=== PATIENT | female | born 1995 | race Caucasian/White ===

== ENCOUNTER → 2018-12-16 | Outpatient (REF) | payer OTHER | LOC: M SFHCLERA 17:08 | PROVIDERS: ATTEND Physician Assistant | DX: J02.9 Acute pharyngitis, unspecified (principal) ==

== ENCOUNTER 2019-02-14 17:09 | Emergency (ER) | payer OTHER ==
[~2019-02-14] VITALS: Ht 160 cm; Wt 63.6 kg
[2019-02-14] MEDS ORDERED: PRENTAB45 PO (17:20)
[2019-02-14] MEDS ORDERED: FAMOTIDINE INJ 20MG/2ML VIAL (S0028) IV ONE (17:45)
[2019-02-14] MEDS ORDERED: NS 1,000 ML IV ONE (17:45)
[2019-02-14] MEDS ORDERED: FAMO1TAB11 PO (17:57)
[2019-02-14] MEDS ORDERED: PRED50TA PO (17:57)
[2019-02-14] MEDS ORDERED: BENA25CA4 PO (17:57)
== END 2019-02-14 19:11 | disposition home or self-care (01) ==
LOC: EDBD 17:09 → M ED 17:09
DX: O99.89 Other specified diseases and conditions complicating pregnancy, childbirth and the puerperium (principal); T78.40XA Allergy, unspecified, initial encounter; Y92.9 Unspecified place or not applicable; Y93.9 Activity, unspecified; Z79.899 Other long term (current) drug therapy; Z91.018 Allergy to other foods

== ENCOUNTER 2019-04-23 21:21 | Outpatient (CLI) | payer OTHER ==
[~2019-04-23] VITALS: Ht 160 cm; Wt 72.2 kg
[~2019-04-23 21:21] MED LIST: BENA25CA4 PO; FAMO1TAB11 PO; PRED50TA PO; PRENTAB45 PO
[2019-04-23 21:46] VITALS: BP 132/86
--- NOTE | 2019-04-24 00:18 | HPE ---
DATE OF ADMISSION: 04/23/2019 A 24-year-old 1, para 0, last menstrual period (LMP) 07/27/2018, estimated date of confinement (EDC) 05/03/2019 at 38 and 5 with a history of 24 hours of no movement. Risk factors is she has syncopal episodes for which she is seeing a radiology receptionist on Monday, and she had growth hormone deficiency which was resolved. Her labs are B+, HIV negative. Hepatitis is unknown. RPR is negative. Rubella immune. Pap shows LGSIL. Urine negative. Gonorrhea and chlamydia are negative. 1-hour glucose was 103 and GBS is negative. On examination, no acute distress. Symphysis fundus height is appropriate. Four quadrant bowel sounds are noted. Category one strip. She initially came in with a category II but eventually ended up with a category one strip with good accelerations, baseline was normal and moderate variability. She denied any loss of fluid or vaginal bleeding. Pulse is 101, respirations are 18: Temperature is 99.4. Blood pressure 132/86. Urine is 1.005. pH 7 and 1+ leukocytes. Our plan was to do a nonstress test (NST) when reactive, give her precautions. She has an appointment with cardiology and an appointment with [facility]. She was discharged undelivered.
[2019-05-04] MEDS ORDERED: IBUP80TA PO (08:16)
[2019-05-04] MEDS ORDERED: PERCOCET PO (08:16)
== END 2019-04-23 22:46 | disposition home or self-care (01) ==
LOC: M LDO 21:21
PROVIDERS: ATTEND Obstetrics & Gynecology
DX: O36.8130 Decreased fetal movements, third trimester, not applicable or unspecified (principal); O99.89 Other specified diseases and conditions complicating pregnancy, childbirth and the puerperium; R87.612 Low grade squamous intraepithelial lesion on cytologic smear of cervix (LGSIL); Z3A.38 38 weeks gestation of pregnancy
CPT/HCPCS: 59025; G0378; G0463

== ENCOUNTER 2019-04-30 03:19 | Outpatient (CLI) | payer OTHER ==
[~2019-04-30] VITALS: Ht 160 cm; Wt 71.9 kg
[2019-04-30 03:32] VITALS: BP 134/93
[2019-04-30 04:09] VITALS: BP 133/88
--- NOTE | 2019-04-30 04:21 | IPNPDOC ---
Text Note Date of Service The patient was seen on 04/30/19. NOTE 24 yo at 39+4 weeks gestation presented to L&D with contractions. She denies any vaginal bleeding or leakage of fluid. She endorses excellent movement. Chaperoned by L&D RN Vitals - VSS, afebrile, normotensive, non tachycardic General - AAOX3, sitting up in bed, NAD Abdomen - Gravid uterus, no fundal tenderness Cervix - 2/75/-3, posterior Extremities - No edema FHR: Reactive NST with moderate variability, +accels, no decels Patient not in active labor. status reassuring. Discharged home with return precautions. All patient questions answered. DO ZIA Bro CHRISTOPHER J. DO Apr 30, 2019 04:21
[2019-04-30] MEDS ORDERED: BENA25CA4 PO (18:55)
[2019-04-30] MEDS ORDERED: MAPA500T2 PO (18:55)
--- NOTE | 2019-05-01 13:08 | RO ---
DATE OF PROCEDURE: 05/01/2019 PROCEDURE: Primary low transverse section. PREOPERATIVE DIAGNOSIS: Arrest of descent. POSTOPERATIVE DIAGNOSES: Arrest of descent, fetus in direct occipitoposterior (OP) presentation. SURGEON: Romeo Mckay DO BLOOD BANK SUPERVISOR: Mirian Larsen CNM, who assistance with exposure, retraction, and delivery was essential ANESTHESIA: Initial attempted epidural but then conversion to general anesthesia. INTRAVENOUS (IV) FLUIDS: 1000 mL lactated Ringer (LR). URINE OUTPUT: 100 mL via Samuels catheter. ESTIMATED BLOOD LOSS (EBL): 700 mL. ANTIBIOTICS: 2 grams Ancef, 500 mg azithromycin. COMPLICATIONS: None. OPERATIVE FINDINGS: Viable male infant found and delivered in the direct OP presentation. Normal uterus, normal ovaries, and fallopian tubes bilaterally. Apgars 4/9. Weight 3520 grams or 7lbs 12oz. DETAILED PROCEDURE DESCRIPTION: The risks, benefits, indications, and alternatives of the procedure were reviewed with the patient, and informed consent was obtained. The patient was taken to the operating room, where epidural anesthesia was initially found to be adequate, but conversion to general anesthesia was ultimately done just before the hysterotomy was made secondary to the inability to get the patient comfortable. The patient was prepped and draped in the usual sterile fashion in the dorsal supine position. A surgical time-out was then performed and the patient's identity and the planned procedure were verified with the operative team. A Samuels catheter had been placed previously. A Pfannenstiel skin incision was then made and carried down through the underlying layer of fascia. The fascia was incised in the midline, and the incision was extended laterally, superiorly, and inferiorly via blunt dissection. At this point, secondary to poor pain control, the decision was made to convert to general anesthesia. The rectus muscles were then at the midline. The peritoneum was then entered digitally and was stretched with good visualization of the bladder upon entry into the abdominal cavity. The bladder blade was then inserted into the abdomen. A bladder flap was then created with a scalpel. The bladder blade was replaced. The uterus was then incised in a transverse fashion with the scalpel. Meconium-stained fluid was noted upon entry into the uterus. The was found in direct OP presentation. The was then delivered atraumatically though the hysterotomy site without difficulty. Cord gases were then obtained. The was then handed off to the awaiting pediatricians. The placenta was then removed manually, and the uterus was exteriorized and cleared of all clots and debris. The hysterotomy incision was then repaired with 0 Monocryl suture in a running locked fashion. A second layer of 0 Monocryl suture was then used to imbricate the hysterotomy in a vertical fashion. There was a small extension of the hysterotomy on the right side, which was made hemostatic and closed with 0 Vicryl suture. Inspection of the hysterotomy revealed excellent hemostasis. Irrigation was then performed, and the uterus was then returned to the abdomen. The pericolic gutters were inspected and cleared of all clots and debris. Inspection of the hysterotomy again revealed small oozing bleeding noted at the left lateral hysterotomy edge, which was made hemostatic with a 3-0 Vicryl suture in a figure-of-8 fashion. Then, inspection of the entire hysterotomy across everywhere revealed excellent hemostasis. The peritoneum was then closed with 3-0 Vicryl suture in a running fashion. The fascia was then closed with 0 Vicryl suture in a running fashion. The subcutaneous fat was closed with 3-0 Vicryl suture in a running fashion. The skin was then closed with 4-0 Vicryl suture and covered with Steri-Strips. At the conclusion of the case, a bimanual examination was performed, which confirmed good uterine tone, minimal vaginal bleeding, and confirmed patent cervix. The patient tolerated the procedure well and was taken to the recovery room in stable condition. LORRAINE
[2019-05-04] MEDS ORDERED: PERCOCET PO (08:16)
[2019-05-04] MEDS ORDERED: IBUP80TA PO (08:16)
== END 2019-04-30 04:20 | disposition home or self-care (01) ==
LOC: M LDO 03:19
PROVIDERS: ATTEND Obstetrics & Gynecology
DX: O26.893 Other specified pregnancy related conditions, third trimester (principal); O47.1 False labor at or after 37 completed weeks of gestation; Z3A.39 39 weeks gestation of pregnancy

== ENCOUNTER 2019-12-25 22:14 | Inpatient (IN) | payer OTHER ==
[~2019-12-25] VITALS: Ht 154.9 cm; Wt 58.5 kg
[~2019-12-25 22:14] MED LIST changes: +IBUP80TA PO; +MAPA500T2 PO; +PERCOCET PO
[2019-12-26] MEDS ORDERED: MAALOX 30 ML SUSP *UDC PO PRN (01:45)
[2019-12-26] MEDS ORDERED: ACETAMINOPHEN TAB 650MG DOSE (2X325MG) PO PRN (01:45)
[2019-12-26] MEDS ORDERED: MOM 30ML SUSPENSION UDC PO PRN (01:45)
--- NOTE | 2019-12-26 01:46 | HPEPDOC ---
[facility] Medical History & Physical Date of Admission Dec 26, 2019 Date of Service: Dec 26, 2019 Other Provider Isabel Attending Physician: TIFFANIE ASENCIO MD History and Physical TIME OF SERVIE 145AM CC: Dizziness HPI: This is a 24 yr old F who presents w c/o of episodes of dizziness followed by intermittent left upper and lower sided weakness for several months. Her PCP who has referred her to a Neurologist but the appointment date is pending. Today she came to the ER because she developed transient vision loss which she found alarming and has been having headaches. She denies having fevers or chills and is currently c/o of feeling very hot which is atypical. Per discussion with the ER provider the patient recently had a CT scan of the head that was unremarkable. ROS: 12 point ROS negative except as listed in HPI PMH/PSH "growth hormone issue " she stopped taking her medications in high school because of financial issues IDN s/p 1 SH -tobacco + , is in the [facility] unknown bc she is adopted MEDS: see below ALLERGIES: see below PHYSICAL EXAM VITALS: see below GEN: well-nourished / well developed/ probable bodies intermittently shaking during parts of the history INTEGUMENT: not flushed/ not jaundice HEENT: NCAT / lips acyanotic /mucus membranes moist and pink CVS: RRR/NMRG/no lower extremity edema LUNGS: able to speak full sentences without stopping to take a breath / no coughing / lungs are clear to auscultation bilaterally on room air ABDOMEN: Contour (flat,) / soft & not tender with palpation MSK/EXTREMITIES: range of motion intact in all 4 extremities NEURO: She has episodes of fluttering with her eyes rolling to the back of her head and her body shaking when a light is shone into her eyes, or when I attempt to assess her extraocular movements / speech is not dysarthric / strength is 5/5 at right and left upper extremity and -5/5 at left and right upper extremity PSYCH: alert and oriented to person place and time/ able to understand and follow all commands LABS:see below ASSESSMENT is a 24 yr old F w a 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 PLAN: 1.Dizziness, weakness, transient vision loss and headaches of unclear cause Differential includes SHERRY in MS vs brain stem lesion vs seizure vs other cause TBD Plan: admit to medical floor, per d/w (Neuro) will order MRI of the brain w contrast, tomopax 25mg PO BID for the dizziness and EEG to r/o seizure / acetaminophen PRN for the THAO 2.ESVIN - Plan: c/w Iron DVT Px w SCDs DISPO: home after less than 2 midnight's stay Vital Signs Vital Signs Date Time Temp Pulse Resp B/P (MAP) Pulse Ox O2 Delivery O2 Flow Rate FiO2 12/25/19 23:59 12/25/19 22:14 98.9 42 18 99 Room Air Laboratory Data Labs 24H Laboratory Tests 12/26/19 01:48 Home Medications Scheduled Ferrous Sulfate (Ferrous Sulfate) 325 Mg Tablet., 325 MG PO DAILY Allergies Coded Allergies: citric acid (Verified Allergy, Unknown, 02/14/19) A-FIB/CHADSVASC A-FIB History Current/History of A-Fib/PAF?: No Current PO Anticoag Therapy: No TIFFANIE AESNCIO MD Dec 26, 2019 01:46
[2019-12-26 01:58] LABS: BASO # 0.1 10^3/uL (0.0-0.2); BASO % 0.8 % (0.0-1.0); EOS # 0.4 10^3/uL (0.0-0.5); EOS % 5.2 % (0.0-3.0); HEMATOCRIT 38.6 % (36.0-47.0); HEMOGLOBIN 11.9 g/dl (12.0-15.5); LYMPH # 3.4 10^3/uL (1.5-5.0); LYMPH % 41.7 % (24.0-44.0); MEAN CORPUSCULAR HEMOGLOBIN 25.8 pg (27.0-33.0); MEAN CORPUSCULAR HGB CONC 30.8 g/dl (32.0-36.5); MEAN CORPUSCULAR VOLUME 83.7 fl (80.0-96.0); MONO # 0.6 10^3/uL (0.0-0.8); MONO % 7.8 % (0.0-5.0); NEUTROPHILS # 3.7 10^3/uL (1.5-8.5); NEUTROPHILS % 44.4 % (36.0-66.0); PLATELET COUNT, AUTOMATED 308 10^3/uL (150-450); RED BLOOD COUNT 4.61 10^6/uL (4.00-5.40); WHITE BLOOD COUNT 8.3 10^3/uL (4.0-10.0)
[2019-12-26] MEDS ORDERED: FERR325T3 PO (02:16)
[2019-12-26] MEDS ORDERED: TOPIRAMATE (TopAMAX) 25 MG TAB PO ONE (02:30)
[2019-12-26 02:58] LABS: BLOOD UREA NITROGEN 12 MG/DL (7-18); CALCIUM LEVEL 8.6 MG/DL (8.5-10.1); CARBON DIOXIDE LEVEL 26 MEQ/L (21-32); CHLORIDE LEVEL 111 MEQ/L (98-107); CREATININE FOR GFR 0.76 MG/DL (0.55-1.30); FREE T4 1.14 NG/DL (0.76-1.46); GLOMERULAR FILTRATION RATE > 60.0 (>60); GLUCOSE, FASTING 84 MG/DL (70-100); MAGNESIUM LEVEL 2.2 MG/DL (1.8-2.4); POTASSIUM SERUM 4.2 MEQ/L (3.5-5.1); SODIUM LEVEL 144 MEQ/L (136-145)
[2019-12-26 03:17] VITALS: BP 105/70
[2019-12-26 06:00] VITALS: BP 108/62
[2019-12-26] MEDS: DOCUSATE SODIUM 100 MG CAP PO SCH ×3 (09:00→21:00)
[2019-12-26] MEDS: FERROUS SULFATE 325MG TAB PO SCH (09:40)
[2019-12-26] MEDS: TOPIRAMATE (TopAMAX) 25 MG TAB PO SCH ×2 (09:41→21:49)
[2019-12-26] MEDS ORDERED: PROHANCE 279.3MG/ML 15ML VIAL (A9576) As Ordered ONE (12:10)
--- NOTE | 2019-12-26 13:21 | IPNPDOC ---
Text Note Date of Service The patient was seen on 12/26/19. NOTE SUBJECTIVE: Patient was admitted overnight for dizziness, headache and transient visual loss. This morning on examination, patient stated that she did not have vision loss, simply had uncontrolled blinking, preventing her from seening accurately. She denies any recent illness. No change in diet, no changes in control. She is using a copper IUD. Patient is adopted and has no family history to report. She denies headache this morning. Of note patient does have a remote history of BPPV, was undergoing vestibular rehabilitation with producible symptoms of dizziness. She states that this episode of dizziness and poor vision does not feel like a BPPV-like symptoms. , Denies alcohol. Denies cigarette usage. She admits to ongoing symptoms with transition from laying down to sitting. Orthostatics have been negative so far. During hospital stay.Denies chest pain, denies nausea, denied vomiting, denies changes in vision. Denies any recent illness. Denies shortness of breath, or difficulty breathing.. He had no other overnight activities. OBJECTIVE: PHYSICAL EXAMINATION: GENERAL APPEARANCE: Alert no acute distress. Young female, no apparent distress SKIN: Warm, well perfused. LUNGS: Clear to auscultation bilaterally. HEART: Normal S1, S2. No murmurs, no rubs, no gallops ABDOMEN: Soft. No masses. Bowel sounds are present. TRUNK/SPINE:Straight. EXTREMITIES: Moves all extremities equally. No gross deformities. PULSES: 2+ upper and lower extremity . NUERO; normal [id number], unable to form. Cranial nerves II through exam unable to perform due to rapid blinking, blinking also occurs when patient transitions from laying down to sitting. She has an episode of rapid blinking that prevents her from seeing clearly,. Muscle strength 5 out of 5 in bilateral upper and lower extremity, reflexes intact. When patient is asked to extend her left leg. She also has reproducible symptoms of rapid blinking LABORATORY DATA: Please see below. ASSEMENT A 24-year-old female admitted for headaches, and transient vision loss. She will be followed by neurologist. MRI and EEG pending. PLAN 1.Dizziness, weakness, transient vision loss and headaches of unclear cause. Unknown etiology, differential diagnosis includes amaurosis fugax, pseudotumor cerebri, multiple sclerosis, secondary gains, malingering symptoms. Seizures, BPPV -Neurology on board -MRI and EEG pending -PT evaluate for BPPV DVT Px w SCDs VS,Fishbone, I+O VS, Fishbone, I+O Laboratory Tests 12/26/19 01:48 Vital Signs Date Time Temp Pulse Resp B/P (MAP) Pulse Ox O2 Delivery O2 Flow Rate FiO2 12/26/19 06:00 97.8 66 18 108/62 (77) 99 Room Air I&O- Last 24 Hours up to 6 AM 12/26/19 06:00 Intake Total 150 ml Output Total 0 ml Balance 150 ml GME ATTESTATION GME ATTESTATION My faculty preceptor for this patient encounter was physically present during the encounter and was fully available. All aspects of the patient interview, examination, medical decision making process, and medical care plan development were reviewed and approved by the faculty preceptor. The faculty preceptor is aware and concurs with the plan as stated in the body of this note and will attest to such by his/her cosignature. ATTENDING NOTE 24-year-old woman with a long standing history of vestibular challenges with frequent orthostatic syncopal episodes and "uncontrollable eye flipping" who had ongoing outpatient workup pending a brain MRI but developed persistent "eye flipping" at home such that her brought her in and on ED consultation with neurology was admitted for MRI and EEG which are pending at this time, as well as PT evaluation for BPPV. She is otherwise doing well when she does not have sudden position changes. Of note, she was not orthostatic on evaluation. OLLIE SRIVASTAVA DO Dec 26, 2019 13:21 TIGRE CASTELLANO MD Dec 27, 2019 08:16
--- NOTE | 2019-12-26 13:24 | REPVR ---
PROCEDURE INFORMATION: Exam: MR Head Without Contrast Exam date and time: 12/26/2019 1:06 PM Age: 24 years old Clinical indication: Patient HX: Dizziness, blurry vision during panic attacks; Additional info: Dizziness/vision issues TECHNIQUE: Imaging protocol: MR of the head without contrast. COMPARISON: No relevant prior studies available. FINDINGS: Brain: There is no acute intracranial hemorrhage, cerebral edema, or midline shift. No restricted diffusion is present to suggest acute infarction. Ventricles: No hydrocephalus. Bones/joints: Unremarkable. Soft tissues: Unremarkable. Sinuses: Normal as visualized. No acute sinusitis. Mastoid air cells: Normal as visualized. No mastoid effusion. Orbits: Unremarkable. IMPRESSION: No acute findings. Electronically signed by: Andrei Rao On 12/26/2019 13:23:48 PM
[2019-12-26 22:00] VITALS: BP 102/64
[2019-12-27 06:00] VITALS: BP 92/59
[2019-12-27 06:47] LABS: HEMATOCRIT 36.8 % (36.0-47.0); HEMOGLOBIN 11.8 g/dl (12.0-15.5); MEAN CORPUSCULAR HEMOGLOBIN 26.6 pg (27.0-33.0); MEAN CORPUSCULAR HGB CONC 32.1 g/dl (32.0-36.5); MEAN CORPUSCULAR VOLUME 82.9 fl (80.0-96.0); PLATELET COUNT, AUTOMATED 318 10^3/uL (150-450); RED BLOOD COUNT 4.44 10^6/uL (4.00-5.40); WHITE BLOOD COUNT 6.9 10^3/uL (4.0-10.0)
[2019-12-27 06:58] VITALS: BP 103/60
[2019-12-27 07:15] LABS: BLOOD UREA NITROGEN 11 MG/DL (7-18); CALCIUM LEVEL 9.1 MG/DL (8.5-10.1); CARBON DIOXIDE LEVEL 24 MEQ/L (21-32); CHLORIDE LEVEL 111 MEQ/L (98-107); CREATININE FOR GFR 0.78 MG/DL (0.55-1.30); GLOMERULAR FILTRATION RATE > 60.0 (>60); GLUCOSE, FASTING 94 MG/DL (70-100); POTASSIUM SERUM 4.4 MEQ/L (3.5-5.1); SODIUM LEVEL 141 MEQ/L (136-145)
--- NOTE | 2019-12-27 07:15 | EEG ---
DATE OF PROCEDURE: 12/26/2019 REFERRING PHYSICIAN: Dr. Dumas DIAGNOSIS: Seizure-like activity in the form of bilateral eyelids were fluttering. EEG NUMBER: [id number]. HISTORY: The patient is a 24-year-old woman with history of growth hormone deficiency multiple passing-out spells. She rapid eye lid eyelids were fluttering without losing consciousness or awareness. She is currently taking Topamax, ferrous sulfate, magnesium, etc. TECHNICAL DESCRIPTION: This digital EEG was recorded by 21 scalp ear and two EKG electrodes and was reviewed in bipolar and referential montages following reformatting in 10-20 international electrode placement system. INTERPRETATION: The patient was noted to be in awake and drowsy states during this EEG. Resting awake background rhythm consisted of well-formed posterior dominant rhythm with anterior/posterior gradient comprising of 11 Hz alpha activity measuring 15 - 60 microvolts in amplitude which was symmetric and reactive to eye opening. Attenuation of posterior dominant was seen during transition into drowsiness. Stage I and II sleep were reviewed and symmetric bilaterally. Hyperventilation could not be performed. Photic stimulation remained unremarkable. No focal, lateralizing or epileptiform abnormalities were seen. EKG revealed normal sinus rhythm. Multiple episodes of eyelid flutters were recorded and showed only eyelid and muscle movement artifacts without any change in capital EEG background. CONCLUSION: This EEG in awake, drowsy state, stage I and II sleep is within normal limits. There was no capital EEG correlate or abnormality during multiple episodes of eyelid fluttering
--- NOTE | 2019-12-27 07:24 | CR ---
DATE OF CONSULTATION: 12/26/2019 REFERRING PHYSICIAN: Dr. Denise Berg REASON FOR CONSULTATION: Headaches, dizziness, eyelid flutter. HISTORY OF PRESENT ILLNESS: Sammie Chandra is a 24-year-old woman with episodes of passing out since childhood. The patient will pass out with blood draw and injections. The patient states that her passing-out spells increased significantly during her and . During her and since childbirth 8 months ago she has been passing out twice a day for last 18 months almost. She will be standing or taking a shower and would pass out for few seconds. Her has caught her while passing out and prevented her from falling. There is no shaking or urinary incontinence. The patient had depression and took Prozac for 2 months. She stopped taking Prozac 6 months ago as her depression improved when she started getting out of the house. For the last 1 month she has had episodes of eyelid flutter which is brought on by leaning backwards, turning her head to left side following finger as it moves to left side or comes close to her. Covering her right eye and trying to follow finger also causes eyelid flutter. Eyelid flutter does not happen when she follows finger towards right side. Lifting her left leg up also causes eyelid flutter but it does not happen by lifting right leg or arms. She was seen by audiology and had VNG testing and she was told that her problems were central. Yesterday she had trouble with her vision and she could not see or focus on anything. For the last couple of months she has daily headaches which are 5 out of 10 in intensity. She also has chronic back pain. The patient states that during MRI of brain this morning she almost passed out and had increased eye flutter with two different types of noises. She was trying to figure out what types of noises or sequences were those when she passed out. PAST MEDICAL HISTORY: Decreased growth hormone and she was on growth hormone in school, but stopped taking her medications due to financial issues, section, depression. SOCIAL HISTORY: She denies smoking, alcohol or illicit drugs. She is and her is in . FAMILY HISTORY: The patient is adopted. REVIEW OF SYSTEMS: All systems were reviewed and found to be noncontributory except as mentioned in present illness. HOME MEDICATIONS: - ferrous sulfate 325 mg by mouth daily ALLERGIES: CITRIC ACID. PHYSICAL EXAMINATION: Temperature 97.8, pulse 66, respiratory 18, blood pressure 108/62, 99% saturation on room air. Heart: Regular rate and rhythm. Lungs: Clear to auscultation. Abdomen: Soft, nontender, nondistended. No pedal edema. No musculoskeletal abnormalities. No rash. No signs of meningeal irritation. No tremor or dysmetria. The patient is awake, alert, oriented to place, person and time. Normal speech comprehension and repetition. No facial weakness. Extraocular muscles are intact. Tongue and uvula are midline. She had multiple episodes of eyelid flutter with eyes rolling up into orbits which were triggered by maneuvers as described in history of present illness. The patient remained conscious throughout these. She was able to stop them by forcefully closing her eyes. They would last for a couple of seconds each time. 5/5 strength in all four extremities. Normal sensation throughout. No dysmetria on finger-nose testing. Gait is normal. Romberg testing is negative. DIAGNOSTIC STUDIES: MRI scan of brain with and without contrast was within normal limits. Her EEG is within normal limits. Several episodes of eyelid flutter were noted without EEG correlate. There was only eyelid and muscle artifact. ASSESSMENT: 1. Syncopal episodes. 2. There is concern for vasovagal syncope and POTS/postural orthostasis and tachycardia syndrome. 3. Eyelid fluttering and myoclonia triggered by external stimuli as described in HPI such as turning head to left side, following finger on extraocular muscle testing, lifting left leg up, etc. 4. Jeavons syndrome is less likely. 5. Chronic daily headaches. PLAN: 1. Continue Topamax 25 mg by mouth twice a day for headaches and dizziness. 2. Autonomic nervous system testing on outpatient basis due to concern for POTS. 3. We may consider ambulatory EEG or video EEG on outpatient basis. 4. Follow with our office on outpatient basis. The patient already has a scheduled appointment. LABORATORY STUDIES: Her hemoglobin was 11.9. Negative beta hCG and blood with normal metabolic profile and TSH was 4.1.
[2019-12-27] MEDS: DOCUSATE SODIUM 100 MG CAP PO SCH (09:00)
[2019-12-27] MEDS: FERROUS SULFATE 325MG TAB PO SCH (09:17)
[2019-12-27] MEDS: TOPIRAMATE (TopAMAX) 25 MG TAB PO SCH (09:17)
[2019-12-27] MEDS ORDERED: TOPA1TAB PO ×2 (12:38→15:51)
--- NOTE | 2019-12-27 12:59 | DS.PDOC ---
Discharge Summary General Date of Admission Dec 26, 2019 at 21:35 Date of Discharge 12/27/2019 Specialist/Consultants Involve: CAYETANO CELESTE MD Discharge Summary PROCEDURES PERFORMED DURING STAY: Electroencephalogram ADMITTING DIAGNOSES: 1. Dizziness 2. Blurry Vision DISCHARGE DIAGNOSES: 1. Eye flutter 2. Syncopal episode 3. Vasovagal syncope 4. Suspicion for POTS syndrome 5. Suspicion for Jeavons syndrome 6. Chronic Daily Headaches COMPLICATIONS/CHIEF COMPLAINT: Eye Pain/Swelling. HISTORY OF PRESENT ILLNESS: Patient is a 24 yr old female who presented with an acute complaint of transient vision loss, with headaches. On presentation she denied fevers, chills, recent illness, and is currently c/o of feeling very hot which is atypical. Per discussion with the ER provider the patient recently had a CT scan of the head that was unremarkable. HOSPITAL COURSE: Patient was admitted overnight for dizziness, headache and transient visual loss. On day one of hospital stay stated that she did not have vision loss, simply had uncontrolled blinking, preventing her from seeing accurately. She denies any recent illness. No change in diet, no changes in control. She is using a copper IUD. Patient is adopted and has no family history to report. She denies headache. Of note patient does have a remote history of BPPV, was undergoing vestibular rehabilitation with producible symptoms of dizziness. She states that this episode of dizziness and poor vision does not feel like a BPPV- like symptoms. , Denies alcohol. Denies cigarette usage. She admits to ongoing symptoms with transition from laying down to sitting. Orthostatics have been negative during hospital stay. During her stay she was evaluated by neurologist, as well as had an EEG performed. She was also evaluated by physical therapy, which recommended. The patient was safe for discharge with recommend patient to follow-up with outpatient vestibular therapy. Patient will follow-up with neurology for further outpatient testing. With considerations for vasovagal syncope and POTS/postural orthostasis and tachycardia syndrome. Jeavons syndrome and chronic daily headaches. DISCHARGE MEDICATIONS: Please see below. ALLERGIES: Please see below. PHYSICAL EXAMINATION ON DISCHARGE: VITAL SIGNS: Please see below. GENERAL APPEARANCE: Alert no acute distress. Young female, no apparent distress SKIN: Warm, well perfused. LUNGS: Clear to auscultation bilaterally. HEART: Normal S1, S2. No murmurs, no rubs, no gallops ABDOMEN: Soft. No masses. Bowel sounds are present. EXTREMITIES: Moves all extremities equally. No gross deformities. PULSES: 2+ upper and lower extremity . NUERO; normal [id number], Cranial nerves II through exam unable to perform due to rapid/flutter blinking, blinking/flutter also occurs when patient transitions from laying down to sitting. Muscle strength 5 out of 5 in b ilateral upper and lower extremity, reflexes intact. When patient is asked to extend her left leg. She also has reproducible symptoms of rapid blinking/flutter. Rapid eye blinking is also reproduced with light stimulation. LABORATORY DATA: Please see below. IMAGING: BRAIN MRI: No acute findings. EEG: INTERPRETATION: The patient was noted to be in awake and drowsy states during this EEG. Resting awake background rhythm consisted of well-formed posterior dominant rhythm with anterior/posterior gradient comprising of 11 Hz alpha activity measuring 15 - 60 microvolts in amplitude which was symmetric and reactive to eye opening. Attenuation of posterior dominant was seen during transition into drowsiness. Stage I and II sleep were reviewed and symmetric bilaterally. Hyperventilation could not be performed. Photic stimulation remained unremarkable. No focal, lateralizing or epileptiform abnormalities were seen. EKG revealed normal sinus rhythm. Multiple episodes of eyelid flutters were recorded and showed only eyelid and muscle movement artifacts without any change in capital EEG background. CONCLUSION: This EEG in awake, drowsy state, stage I and II sleep is within normal limits. There was no capital EEG correlate or abnormality during multiple episodes of eyelid fluttering PROGNOSIS: Stable ACTIVITY: As tolerated DIET: As tolerated DISCHARGE PLAN: To home with Neurology consult DISPOSITION:Stable DISCHARGE INSTRUCTIONS: 1. Please follow up with Neurology 2. Please follow up with PT for vestibular therapy ITEMS TO FOLLOWUP ON ON OUTPATIENT: 1. Eye flutter 2. Syncopal episode 3. Vasovagal syncope 4. Suspicion for POTS syndrome 5. Suspicion for Jeavons syndrome 6. Chronic Daily Headaches DISCHARGE CONDITION: Stable TIME SPENT ON DISCHARGE: 40 minutes. Vital Signs/I&Os Vital Signs Date Time Temp Pulse Resp B/P (MAP) Pulse Ox O2 Delivery O2 Flow Rate FiO2 12/27/19 06:58 103/60 (74) 12/27/19 06:00 97.9 63 14 98 Room Air I&O- Last 24 Hours up to 6 AM 12/27/19 06:00 Intake Total 720 ml Output Total 650 ml Balance 70 ml Laboratory Data Labs 24H Laboratory Tests 2 12/27/19 06:28: Nucleated Red Blood Cells % (auto) 0.0, Anion Gap 6L, Glomerular Filtration Rate > 60.0, Calcium Level 9.1 CBC/BMP Laboratory Tests 12/27/19 06:28 Discharge Medications Scheduled Ferrous Sulfate (Ferrous Sulfate) 325 Mg Tablet.dr, 325 MG PO DAILY, (Reported) Topiramate (Topamax) 25 Mg Tablet, 25 MG PO Q12H . Allergies Coded Allergies: citric acid (Verified Allergy, Unknown, 02/14/19) GME ATTESTATION GME ATTESTATION My faculty preceptor for this patient encounter was physically present during the encounter and was fully available. All aspects of the patient interview, examination, medical decision making process, and medical care plan development were reviewed and approved by the faculty preceptor. The faculty preceptor is aware and concurs with the plan as stated in the body of this note and will attest to such by his/her cosignature. ATTENDING NOTE 24 yr old W with a history of vestibular and gait disturbances with ongoing outpatient workup as well as prior reports of syncope, who presented with head ache and uncontrollable bilateral blinking with postural changes that was initially reported as transient vision loss who had a grossly normal lab panel, orthostatic vitals, CT head and MRI of brain. She was seen by Dr. Celeste and ultimately suspected that she might have POTS and is now being discharged home to follow up with him as an outpatient where he will likely do a video and ambulatory EEG. OLLIE SRIVASTAVA DO Dec 27, 2019 12:59 TIGRE CASTELLANO MD Dec 29, 2019 06:38
== END 2019-12-27 17:00 | disposition home or self-care (01) | DRG 149 ==
LOC: M ED 22:14 → INTOOBSV 12-26 01:41 → M ED INP 12-26 01:41 → ENRESERVDT 12-26 02:37 → ENRESERVTM 12-26 02:37 → M MSPAV 12-26 03:17 → OBSVTOIN 12-26 21:35
PROVIDERS: ADMIT Internal Medicine; ATTEND Internal Medicine
DX: R42 Dizziness and giddiness (principal); R51 Headache; D50.9 Iron deficiency anemia, unspecified; Z88.8 Allergy status to other drugs, medicaments and biological substances; Z79.899 Other long term (current) drug therapy; R55 Syncope and collapse; I49.8 Other specified cardiac arrhythmias; H53.8 Other visual disturbances